=== PATIENT | male | born 1940 | race Caucasian/White ===

== ENCOUNTER → 2016-12-02 | Outpatient (CLI) | payer OTHER ==
[~2016-12-02] MED LIST: ALLOPURINOL 10100 M1 PO; AMARYL1 MG PO; APAP500 PO; ATIVAN0.5 MG PO; CATAPRES-TTS 20.2 MG PO; COLCHICINE 0.60.6 M1 PO; CRESTOR10 MG PO; FUROSEMIDE PO; HCTZ PO; NORVASC 2.5 MG2.5 MG PO; POTASSIUM20 PO; PROTONIX40 M2 PO; SLOW RELEASE I250 MG PO; ULTRACET TABLE1 EACH PO
== END ==
LOC: RAD 11:10
DX: S12.300D Unspecified displaced fracture of fourth cervical vertebra, subsequent encounter for fracture with routine healing (principal); M45.2 Ankylosing spondylitis of cervical region; X58.XXXD Exposure to other specified factors, subsequent encounter

== ENCOUNTER → 2016-12-25 | Outpatient (CLI) | payer OTHER ==
[~2016-12-25] MED LIST changes: +ESCITALOPRAM OX20 MG PO; +GLUCOPHAGE XR750 MG PO; +HYDROCODON-ACE1 EAC7 PO; +HYDROCODONE-AP1 EAC6 PO; +INSULIN 70/30 SUBQ; +PRAVACHOL20 MG PO; +SPIRONOLACTONE100 M3 PO
[2016-12-25 13:17] VITALS: BP 131/73; BP 132/75
== END ==
LOC: OPONC 09:03
DX: D64.9 Anemia, unspecified (principal)
CPT/HCPCS: 91030

== ENCOUNTER → 2017-07-06 | Outpatient (CLI) | payer OTHER ==
[~2017-07-06] MED LIST changes: +ACIDOPHILUS1 EAC3 PO; -CATAPRES-TTS 20.2 MG PO; +CATAPRES-TTS 20.2 MG TRANSDERM; +COLACE100 MG PO; +MIRALAX17 GM PO; +UNICOMPLEX M TA1 TA1 PO; +VITAMIN C500 M2 PO
== END ==
LOC: RAD 13:09
DX: M43.8X6 Other specified deforming dorsopathies, lumbar region (principal); M47.894 Other spondylosis, thoracic region; M25.78 Osteophyte, vertebrae; M45.4 Ankylosing spondylitis of thoracic region; I70.0 Atherosclerosis of aorta

== ENCOUNTER → 2017-07-20 | Outpatient (CLI) | payer OTHER | LOC: ULTRA 10:34 | DX: R94.5 Abnormal results of liver function studies (principal); K76.6 Portal hypertension; R74.8 Abnormal levels of other serum enzymes; I82.890 Acute embolism and thrombosis of other specified veins ==

== ENCOUNTER 2017-10-31 17:12 | Inpatient (IN) | payer OTHER ==
[~2017-10-31] VITALS: Ht 170.2 cm; Wt 85.5 kg
--- NOTE | ~2017-10-31 | HC ---
[facility] [place] [address] CONSULTATION Name: MORGAN GRAYSON Room #: 237-P ADM IN M.R.#: [id number] Admission: 10/31/17 Attend Phys: Prashanth Mckinnon MD Discharge: Date of : 42 Report #: [id number] THIS REPORT FOR: //name// CC: Ford Mckinnon REASON FOR CONSULTATION: Atrial fibrillation. HISTORY OF PRESENT ILLNESS: The patient is a 77-year-old gentleman with a complicated history including coronary artery disease, diabetes, ankylosing spondylitis and remote bypass surgery (left internal mammary to the LAD and sequentially to the diagonal, free right internal mammary from the left internal mammary to the OM branch, radial to OM2 and vein graft to the posterior descending). He had a nonischemic stress study in 2015. He has a history of dementia. He was admitted in October with acute kidney injury. He has had multiple falls associated with rib fractures and scapular fracture in September of this year. An echocardiogram performed in our office in 03/2017 demonstrated normal left ventricular systolic function, moderate left atrial enlargement and moderate mitral insufficiency. He now presents with altered mental status. His Emergency Room visit was notable for the presence of atrial fibrillation, which is a new diagnosis for him. I have been asked to see him in this regard. The chronicity of the atrial fibrillation is unknown. There have been no heart failure symptoms including orthopnea, paroxysmal nocturnal dyspnea or lower extremity edema. Blood pressure and blood sugar readings have been well controlled. ALLERGIES: There are no known drug allergies. MEDICATIONS: Include amlodipine 2.5 mg daily, clonidine patch 0.2 mg weekly, Lexapro 20 mg daily, hydrocodone, alprazolam, Novolin 70/30, pantoprazole, spironolactone 100 mg daily. PAST MEDICAL HISTORY: Medical records have been reviewed and include a history of ankylosing spondylitis, coronary artery disease, diabetes, hypertension, basal cell carcinoma excision, cervical vertebral fusion, thyroidectomy. SOCIAL HISTORY: He is a former smoker, he is a drinker. FAMILY HISTORY: Notable for coronary artery disease in the mother and brother. REVIEW OF SYSTEMS: All systems negative except as that noted above. PHYSICAL EXAMINATION: GENERAL: This is a poorly responsive gentleman who is not answering questions or responding. VITAL SIGNS: Blood pressure is 120/58, heart rate of 87 and regular. He is afebrile, 5 feet 7 inches tall, [address] [address] CONSULTATION Name: MORGAN GRAYSON Room #: 237-P [facility]#: [id number] Admission: 10/31/17 Attend Phys: Prashanth Mckinnon MD Discharge: Date of : 42 Report #: [id number] HEENT: There are neither xanthelasma, subcutaneous xanthomata, oral mucosal or digital cyanosis or kyphoscoliosis present. CHEST: Clear to auscultation and percussion. CARDIOVASCULAR: An irregularly irregular rhythm with normal S1, S2. Soft systolic murmur at the left sternal border. ABDOMEN: Soft and nontender. EXTREMITIES: Without edema. Radial pulses are 2+. NEUROLOGIC: Poorly responsive, nonfocal exam. LABORATORY DATA: Sodium 128, potassium 6.2, creatinine 4.3, glucose 172, ALT 71, alkaline phosphatase 585. Lactate 5.6. White count 25,000, hemoglobin 12, hematocrit 36, platelet count 216. Chest x-ray demonstrates mild bibasilar atelectasis or infiltrate. IMPRESSION: 1. Atrial fibrillation of uncertain chronicity, rate controlled. 2. Possible sepsis; encephalopathy. 3. Coronary artery disease with remote bypass surgery. 4. Acute kidney injury. 5. Hypertension. 6. Ankylosing spondylitis. 7. Alcohol intake history; previously described early Wernicke encephalopathy. 8. History of falls with recent scapula and rib fractures. 9. Diabetes. 10. Hypercoagulable. RECOMMENDATIONS: 1. Rate control strategy for atrial fibrillation. 2. Renal and infectious disease consultations. Cultures have been obtained. 3. There are several relative contraindications to anticoagulant therapy despite an elevated CHADS-VASc score. At this point, to avoid antiarrhythmic therapy given the uncertain chronicity of the atrial fibrillation. His rates are currently well controlled. <ELECTRONICALLY SIGNED> By: Braden Fong MD, [facility] 11/02/17 0752 0908 1224 Braden Fong MD, FAC /nt
--- NOTE | ~2017-10-31 | EKG ---
[address] [email or web address] [address] ELECTROCARDIOGRAM REPORT Name: MORGAN GRAYSON Room #: 237- ADM IN M.R.#: [id number] Admission: 10/31/17 Attend Phys: Prashanth Mckinnon MD Discharge: Date of : 42 Report #: [id number] THIS REPORT FOR: //name// [facility] Test Date: 2017-11-02 Test Time: 07:12:13 Pat Name: MORGAN GRAYSON Department: Room: 237 P Gender: M Set Staff Fitter: lbg : 1940 Requested By: Braden Fong Order Number: [id number] MD: Braden Fong Measurements Intervals [place] Rate: 87 P: CT: QRS: -4 QRSD: 103 T: 163 QT: 370 QTc: 445 Interpretive Statements Atrial fibrillation Low voltage, precordial leads Nonspecific T abnormalities Compared to ECG 10/31/2017 17:23:06 No significant change was found Electronically Signed On 11-02-2017 7:49:57 CDT by Braden Fong [email or web address] <ELECTRONICALLY SIGNED> By: Braden Fong MD, [facility] 0649 1 1 Braden Fong MD, [facility] /EPI
--- NOTE | ~2017-10-31 | EKG ---
[address] [address] ELECTROCARDIOGRAM REPORT Name: MORGAN GRAYSON Room #: 353-P ADM IN .R.#: [id number] Admission: 10/31/17 Attend Phys: Prashanth Mckinnon MD Discharge: Date of : 42 Report #: [id number] THIS REPORT FOR: //name// [facility] ED Test Date: 2017-10-31 Test Time: 17:23:06 Pat Name: MORGAN GRAYSON Department: Room: Gender: M Section Cutter: : 1940 Requested By: Salma Byrne Order Number: [id number] MD: Angel Villa Measurements Intervals [place] Rate: 94 P: [place]: QRS: -3 QRSD: 99 T: 162 QT: 357 QTc: 447 Interpretive Statements Atrial fibrillation Compared to ECG 10/28/2004 08:45:29 Electronically Signed On 11-01-2017 8:01:00 CDT by Angel Villa [email or web address] <ELECTRONICALLY SIGNED> By: Angel Villa MD 11/01/17 0801 172 22 Angel Villa MD /BERKLEY
--- NOTE | ~2017-10-31 | HC ---
[facility] [address] [address] CONSULTATION Name: NURIA GRAYSONFermin Mohamud Room #: 237-P ADM IN .R.#: [id number] Admission: 10/31/17 Attend Phys: Prashanth Mckinnon MD Discharge: Date of : 42 Report #: [id number] THIS REPORT FOR: //name// CC: Ford Mckinnon DATE OF SERVICE: 11/01/2017 REASON FOR CONSULTATION: Elevated creatinine and potassium. HISTORY OF PRESENT ILLNESS: This 77-year-old gentleman with history of alcoholism and diabetes, had presented to this hospital 2 weeks ago with frequent falls. At that time, he was found to be progressively debilitated, felt to be from his alcoholism and falls, was treated conservatively, was discharged to a rehab facility where he was doing okay until yesterday when he became progressively more lethargic and less responsive. He came to the Emergency Room, his creatinine was elevated from 1.3-4.1. Potassium was 6.3, glucose was 206. He was admitted. He apparently has some posterior wounds as well. PAST MEDICAL HISTORY: Longstanding diabetes mellitus, insulin requiring. Alcoholism with heavy drinking until this admission 2 weeks ago. Coronary artery disease, status post coronary bypass 10-15 years ago, followed by Dr. Fong. History of cervical spine surgery in the past and hypertension. He also had a shoulder fracture at the time of his last admission. MEDICATIONS: At the time of discharge from this hospital a week ago included lorazepam 0.5 mg every 8 hours, hydrocodone, escitalopram 20 mg daily, spironolactone 100 mg daily, insulin, amlodipine 2.5 mg daily, clonidine TTS patch, Protonix 40 mg daily. SOCIAL HISTORY: He had been a heavy smoker as well as an alcoholic, drinking vodka on a daily basis until this admission a couple of weeks ago. FAMILY HISTORY: Noncontributory. REVIEW OF SYSTEMS: Cannot be taken due to his mental status. PHYSICAL EXAMINATION: GENERAL: This is a somewhat ill-appearing gentleman, difficult to arouse. SKIN: Unremarkable. SKELETAL: Well developed, well nourished, nonobese. HEENT: Extraocular movements cannot be tested. No scleral icterus. Hearing and vision not tested. Mucous membranes are dry. NECK: Veins are flat. The neck is rather stiff. He has had previous cervical spine surgery. [address] [address] CONSULTATION Name: MORGAN GRAYSON Room #: 237-P [facility] IN ..#: [id number] Admission: 10/31/17 Attend Phys: Prashanth Mckinnon MD Discharge: Date of : 41 Report #: [id number] CHEST: Clear to auscultation. HEART: Regular. ABDOMEN: Soft and nontender. The liver is enlarged a couple of fingerbreadths below the right costal margin. EXTREMITIES: Show 1+ peripheral edema. NEUROLOGIC: Again, he is difficult to arouse in the semi-comatose condition. LABORATORY DATA: The urinalysis was somewhat concentrated. Hemoglobin was 12.3, white count all the way up to 25.7. Sodium 126, potassium 6.3, chloride 97, bicarbonate 13, creatinine 4.1, BUN 93. The AST is 44, ALT 71, alkaline phosphatase 585. ASSESSMENT AND PLAN: 1. Acute kidney injury. Creatinine is up. He is a bit swollen. The albumin is only 1.7. He is obviously third spaced with a lot of fluid. His lactic acid is up likely from the liver disease. Infection needs to be eliminated. He has gotten appropriate cultures. He is on just ceftriaxone at the current time. Antibiotics need to be broadened out of it, but it is likely that his illness may simply be alcoholic hepatitis, which often runs in the sort of time course and his liver function tests are clearly worse, and I suspect that might be the underlying etiology for his illness. In any event, we are giving him IV fluids and bicarbonate, and he has had cultures and antibiotics. Urine does not look infected. An initial chest x-ray did not show infiltrates. 2. Diabetes mellitus, insulin requiring. 3. History of hypertension. 4. History of coronary bypass. 5. History of cervical spine surgery. 6. Elevated liver function tests. <ELECTRONICALLY SIGNED> By: Ford Lux MD 11/03/17 1150 0723 0905 Ford Lux MD /nt
--- NOTE | ~2017-10-31 | HC ---
[facility] [place] [address] [address] CONSULTATION Name: NURIA GRAYSONFermin Mohamud Room #: 237-P ADM IN M.R.#: [id number] Admission: 10/31/17 Attend Phys: Prashanth Mckinnon MD Discharge: Date of : 41 Report #: [id number] THIS REPORT FOR: //name// CC: Ford Mckinnon REASON FOR CONSULTATION: I was asked to evaluate concerning suspected sepsis with acute renal failure, atrial fibrillation, leukocytosis. HISTORY OF PRESENT ILLNESS: The patient was a 77-year-old with underlying history of diabetes and alcoholism who had presented on October 21 with frequent falls and a left scapular fracture. He was treated for potential alcohol withdrawal. Ultimately discharged to intermediate unit. His dehydration improved. While there, he had a progressive decline in mental status. Developed acute renal failure with anasarca. Transferred back to acute care yesterday due to his change in condition and abnormal laboratory studies. No documented fever, chills or sweats. No cough or sputum production. No nausea, vomiting or diarrhea. Has an indwelling Waters catheter. No central venous access. REVIEW OF SYSTEMS: Also notes several skin tears to his left arm and several decubiti to his lower thoracic spine. The patient has underlying ankylosing spondylitis. His pain has been reasonably controlled. ALLERGIES: None known. MEDICATIONS: As noted on his MAR including lorazepam, hydrocodone, spironolactone, insulin, amlodipine, clonidine, Protonix, escitalopram, was given ceftriaxone in the Emergency Room. 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 FAMILY HISTORY: Noncontributory. SOCIAL HISTORY: Smoker of cigars, significant alcohol intake. PHYSICAL EXAMINATION: VITAL SIGNS: He is afebrile, blood pressure was 121/58, heart rate 87, respiratory rate 20. GENERAL: He was encephalopathic. He would arouse and answer yes or no, but mumbled most of the time. He resisted in turning. His neck was fixed in flexion. HEENT: Unremarkable. Mouth: Dentition in poor repair with dental caries. NECK: No adenopathy. No thyromegaly. [address] [address] CONSULTATION Name: MORGAN GRAYSON Cade Room #: 237-P [facility] IN M.R.#: [id number] Admission: 10/31/17 Attend Phys: Prashanth Mckinnon MD Discharge: Date of : 42 Report #: [id number] LUNGS: Consolidation heard in both bases posteriorly. No rub. HEART: Irregular without appreciable murmur, gallop or rub. ABDOMEN: Mildly distended. Had diffuse tenderness. The patient would not localize. Had 2+ anasarca. GENITOURINARY: External genitalia unremarkable with indwelling Waters catheter. SKIN: Skin tear to the left forearm. No evidence of cellulitis. Also, some pressure wounds to the lower thoracic spine with eschar. No surrounding erythema or fluctuance. EXTREMITIES: The patient able to move all extremities. LABORATORY DATA: Sodium 128, potassium 6.2, bicarbonate of 11, creatinine 3.4 with a baseline of 1.6, albumin 1.6, alkaline phosphatase 585, bilirubin 1.2, AST 44, ALT 71. Lactate 5.6. Urinalysis unremarkable. Hemoglobin 12.3, platelet counts 216,000, white count 25.7 with 93% segs, 5% lymphs. Chest x-ray, bibasilar atelectasis. Blood cultures are pending. IMPRESSION: A 77-year-old with ankylosing spondylitis and Wernicke's encephalopathy, presents now with atrial fibrillation, acute renal failure, hyperkalemia, leukocytosis and metabolic acidosis with elevated lactate. His encephalopathy is likely related to Wernicke's plus toxic metabolic syndrome from his underlying illness. Source of infection, I would consider possible pneumonia versus gallbladder disease. These would be healthcare associated. PLAN: Recommend continuing treatment for his atrial fibrillation. Blood glucose controlled. Fluid management. Await blood cultures. Would ultrasound his abdomen and follow up chest x-ray. Continue with broad antibiotic coverage for healthcare-associated infection. <ELECTRONICALLY SIGNED> By: Dominic Guerra MD 11/01/17 1332 1025 1310 Dominic Guerra MD /nt
[~2017-10-31 17:12] MED LIST changes: -ACIDOPHILUS1 EAC3 PO; -UNICOMPLEX M TA1 TA1 PO; -VITAMIN C500 M2 PO
[2017-10-31 17:14] VITALS: BP 124/55
[2017-10-31 18:35] LABS: HEMATOCRIT 36.7 % (42.0-52.0); HEMOGLOBIN 12.3 gm/dL (14.0-18.0); MCH 32.2 pg (26.0-34.0); MCHC 33.4 g/dL (28.0-37.0); MCV 96.3 fL (80.0-100.0); PLATELET COUNT 216 thou/uL (150-400); RBC 3.81 mil/uL (4.50-6.00); RDW 18.2 % (10.5-14.5); WBC 25.7 thou/uL (4.0-11.0)
[2017-10-31 18:50] LABS: CALCIUM 8.1 mg/dL (8.5-10.1); CREATININE 4.1 mg/dL (0.7-1.3)
[2017-10-31 18:55] LABS: POTASSIUM 6.3 mmol/L (3.5-5.1)
[2017-10-31 18:56] LABS: ALBUMIN 1.7 g/dL (3.4-5.0); DIRECT BILIRUBIN 1.1 mg/dL (<0.1-0.3); TOTAL BILIRUBIN 1.5 mg/dL (<0.1-1.0); TOTAL PROTEIN 5.6 g/dL (6.4-8.2)
[2017-10-31 19:08] LABS: ABSOLUTE NEUTROPHILS 23.9 thou/uL (1.4-8.2); METAMYELOCYTES 1 %
[2017-10-31 19:09] LABS: ANISOCYTOSIS 2+; POLYCHROMASIA OCCASIONAL
[2017-10-31 19:36] LABS: URINE BILIRUBIN NEGATIVE (Negative); URINE BLOOD 1+ (Negative); URINE CLARITY CLEAR; URINE COLOR YELLOW; URINE GLUCOSE-RANDOM* NEGATIVE (Negative); URINE KETONES TRACE (Negative); URINE LEUKOCYTES-REFLEX NEGATIVE (Negative); URINE NITRITE-REFLEX NEGATIVE (Negative); URINE PROTEIN (DIPSTICK) NEGATIVE (Negative); URINE SPECIFIC GRAVITY 1.025 (1.005-1.035)
[2017-10-31 19:44] LABS: SQUAMOUS 4-10 Moderate /LPF (0-3)
[2017-10-31 19:45] LABS: BACTERIA-REFLEX None Seen /HPF (None Seen); CASTS None Seen /LPF (None Seen); URINE RBC 3-10 Few /HPF (0-2); URINE WBC-REFLEX 0-5 Rare /HPF (0-5)
[2017-10-31 19:46] LABS: CRYSTALS None Seen /LPF (None Seen)
[2017-10-31 19:47] LABS: RENAL EPITHELIAL CELLS 4-10 Moderate /LPF (None Seen); TRANSITIONAL EPITHEL CELL 4-10 Moderate /LPF (None Seen)
[2017-10-31 20:10] VITALS: BP 128/66
[2017-10-31 20:40] VITALS: BP 110/75
[2017-10-31 20:50] VITALS: BP 128/76
[2017-10-31] MEDS ORDERED: ACIDOPHILUS1 EAC3 PO (20:59)
[2017-10-31] MEDS ORDERED: VITAMIN C500 M2 PO (21:00)
[2017-10-31] MEDS ORDERED: UNICOMPLEX M TA1 TA1 PO (21:01)
[2017-10-31 23:54] VITALS: BP 114/65
[2017-11-01] VITALS (17 sets, daily range): BP systolic 93–133; BP diastolic 44–88
[2017-11-01 07:23] LABS: ALBUMIN 1.6 g/dL (3.4-5.0); CALCIUM 7.3 mg/dL (8.5-10.1); CREATININE 4.3 mg/dL (0.7-1.3); PHOSPHORUS 7.3 mg/dL (2.5-4.9)
[2017-11-01 07:38] LABS: POTASSIUM 6.2 mmol/L (3.5-5.1)
[2017-11-01 14:41] LABS: ALBUMIN 1.5 g/dL (3.4-5.0); CALCIUM 7.3 mg/dL (8.5-10.1); CREATININE 4.5 mg/dL (0.7-1.3); PHOSPHORUS 7.1 mg/dL (2.5-4.9); POTASSIUM 5.9 mmol/L (3.5-5.1)
[2017-11-02] VITALS (24 sets, daily range): BP systolic 90–115; BP diastolic 48–72
[2017-11-02 05:00] LABS: ABSOLUTE NEUTROPHILS 17.7 thou/uL (1.4-8.2); BASOPHILS 0.3 % (0.0-2.0); EOSINOPHILS 0.2 % (0.0-3.0); HEMATOCRIT 34.2 % (42.0-52.0); HEMOGLOBIN 11.2 gm/dL (14.0-18.0); LYMPHOCYTES 2.4 % (24.0-44.0); MCH 31.6 pg (26.0-34.0); MCHC 32.7 g/dL (28.0-37.0); MCV 96.6 fL (80.0-100.0); PLATELET COUNT 167 thou/uL (150-400); POLYS 92.1 % (36.0-66.0); RBC 3.54 mil/uL (4.50-6.00); RDW 18.7 % (10.5-14.5); WBC 19.3 thou/uL (4.0-11.0)
[2017-11-02 05:17] LABS: ALBUMIN 1.4 g/dL (3.4-5.0); CALCIUM 7.2 mg/dL (8.5-10.1); CREATININE 4.5 mg/dL (0.7-1.3); MAGNESIUM 1.8 mg/dL (1.8-2.4); PHOSPHORUS 7.6 mg/dL (2.5-4.9); TOTAL BILIRUBIN 1.2 mg/dL (<0.1-1.0); TOTAL PROTEIN 5.2 g/dL (6.4-8.2)
[2017-11-02 17:28] LABS: INR 1.7; PROTIME 17.1 Seconds (9.3-11.4)
[2017-11-03] VITALS (51 sets, daily range): BP systolic 68–93; BP diastolic 40–70
[2017-11-03 04:58] LABS: ALBUMIN 1.4 g/dL (3.4-5.0); CREATININE 5.2 mg/dL (0.7-1.3); MAGNESIUM 1.8 mg/dL (1.8-2.4); PHOSPHORUS 8.8 mg/dL (2.5-4.9); TOTAL BILIRUBIN 1.1 mg/dL (<0.1-1.0); TOTAL PROTEIN 5.1 g/dL (6.4-8.2)
[2017-11-03 04:59] LABS: ABSOLUTE NEUTROPHILS 13.3 thou/uL (1.4-8.2); BASOPHILS 0.2 % (0.0-2.0); EOSINOPHILS 0.1 % (0.0-3.0); HEMOGLOBIN 11.7 gm/dL (14.0-18.0); LYMPHOCYTES 2.5 % (24.0-44.0); MCH 31.6 pg (26.0-34.0); MCHC 32.4 g/dL (28.0-37.0); MCV 97.6 fL (80.0-100.0); MONOCYTES 4.7 % (1.0-8.0); PLATELET COUNT 179 thou/uL (150-400); POLYS 92.5 % (36.0-66.0); RBC 3.69 mil/uL (4.50-6.00); RDW 18.6 % (10.5-14.5); WBC 14.4 thou/uL (4.0-11.0)
[2017-11-03 05:02] LABS: POTASSIUM 6.3 mmol/L (3.5-5.1)
[2017-11-04] VITALS (41 sets, daily range): BP systolic 65–82; BP diastolic 38–66
[2017-11-04 05:26] LABS: ALBUMIN 1.2 g/dL (3.4-5.0); CALCIUM 7.2 mg/dL (8.5-10.1); PHOSPHORUS 6.3 mg/dL (2.5-4.9); POTASSIUM 4.7 mmol/L (3.5-5.1)
[2017-11-04 05:28] LABS: CREATININE 3.6 mg/dL (0.7-1.3)
== END 2017-11-04 16:51 | disposition hospice, inpatient (51) | DRG 871 ==
LOC: ER 17:12 → ICU 19:31 → EROBS 19:31 → 3W 19:31 → ICU 11-01 08:39
PROVIDERS: Emergency Medicine; Family Medicine; Internal Medicine Nephrology; Specialist
PROC: B5181ZA Fluoroscopy of Superior Vena Cava using Low Osmolar Contrast, Guidance (ICD-10-PCS; principal; 2017-11-03)
PROC: 02HV33Z Insertion of Infusion Device into Superior Vena Cava, Percutaneous Approach (ICD-10-PCS; principal; 2017-11-03)
PROC: 0W9G3ZZ Drainage of Peritoneal Cavity, Percutaneous Approach (ICD-10-PCS; principal; 2017-11-03)
PROC: B548ZZA Ultrasonography of Superior Vena Cava, Guidance (ICD-10-PCS; principal; 2017-11-03)
PROC: 5A1D70Z Performance of Urinary Filtration, Intermittent, Less than 6 Hours Per Day (ICD-10-PCS; 2017-11-03)
DX: A41.9 Sepsis, unspecified organism (principal); E43 Unspecified severe protein-calorie malnutrition; N17.9 Acute kidney failure, unspecified; D68.59 Other primary thrombophilia; E51.2 Wernicke's encephalopathy; J98.11 Atelectasis; R18.8 Other ascites; E87.5 Hyperkalemia; E11.9 Type 2 diabetes mellitus without complications; I25.10 Atherosclerotic heart disease of native coronary artery without angina pectoris; I10 Essential (primary) hypertension; I48.91 Unspecified atrial fibrillation; M45.9 Ankylosing spondylitis of unspecified sites in spine; F17.210 Nicotine dependence, cigarettes, uncomplicated; F32.9 Major depressive disorder, single episode, unspecified; R41.0 Disorientation, unspecified; K70.10 Alcoholic hepatitis without ascites; Z95.1 Presence of aortocoronary bypass graft; Z87.81 Personal history of (healed) traumatic fracture; Z79.4 Long term (current) use of insulin
CPT/HCPCS: 10203; 10879; 32100